=== PATIENT | female | born 2000 | race American Indian/Alaskan Native ===

== ENCOUNTER 2022-03-14 22:53 | Emergency (ER) | payer SELFPAY ==
[2022-03-15 02:18] VITALS: BP 133/63
== END 2022-03-15 09:38 | disposition left against medical advice (07) ==
LOC: ED 22:53
DX: Z00.00 Encounter for general adult medical examination without abnormal findings (principal); Z53.21 Procedure and treatment not carried out due to patient leaving prior to being seen by health care provider